=== PATIENT | male | born 1945 | race Caucasian/White ===

== ENCOUNTER 2021-07-30 09:58 | Outpatient (CLI) | payer OTHER, SELFPAY ==
--- NOTE | ~2021-07-30 | US_ITS ---
EXAMINATION: US carotid duplex BI EXAM DATE: 07/30/2021 10:53 INDICATION: I77.9 - Disorder of arteries and arterioles, unspecified . Occluded right ICA. TECHNIQUE: Grayscale, color and pulsed Doppler images of the cervical carotid arteries were obtained . The degree of vessel stenosis is placed in one of the following categories: normal, <50% stenosis, 50-69% stenosis, >=70% stenosis but less than near-occlusion, near-occlusion, or occlusion. Note that percent stenosis relative to normal distal artery lumen diameter is indirectly measured from velocit y measurements as described by Alfredo, et al. Radiology 2003; [id number]:[id number]. Comparison is made to prior examination from 05/04/2018. FINDINGS: RIGHT SIDE: Right common carotid artery peak systolic velocity (PSV in cm/s): 94 Right bulb/internal carotid artery peak systolic velocity (PSV in cm/s): Occluded Right internal carotid artery end diastolic velocity (EDV in cm/s): Occluded Right ICA/CCA peak systolic ratio: Right external carotid artery peak systolic velocity (PSV in cm/s): 90 Right vertebral artery antegrade flow: yes Right carotid bulb, ICA appears to be completely occluded. LEFT SIDE: Left common carotid artery peak systolic velocity (PSV in cm/s): 64 Left bulb/internal carotid artery peak systolic velocity (PSV in cm/s): 71 Left internal carotid artery end diastolic velocity (EDV in cm/s): 18 Left ICA/CCA peak systolic ratio: 1.1 Left external carotid artery peak systolic velocity (PSV in cm/s): 113 Left vertebral artery antegrade flow: yes There is mild carotid bulb plaque. Velocity and Doppler waveforms in the common and internal carotid arteries is normal. IMPRESSION: 1. Occluded right internal carotid artery. 2. Less than 50 percent stenosis in the left internal carotid artery. Reviewed, dictated and finalized at location B.
== END 2021-07-30 09:59 | disposition home or self-care (01) ==
PROVIDERS: PCP Internal Medicine; Visit Provider Nurse Practitioner
DX: I65.21 Occlusion and stenosis of right carotid artery (principal)
CPT/HCPCS: 93880

== ENCOUNTER 2022-12-09 19:20 | Emergency (ER) | payer OTHER, SELFPAY ==
--- NOTE | ~2022-12-09 | XR_ITS ---
EXAM: XR hand LT min 3V DATE: 12/09/2022 20:39 HISTORY: fall, LACERATION ON 5TH DIGIT . COMPARISON: None available. FINDINGS: Normal mineralization. No fracture or dislocation. No lytic or blastic lesion. Chondrocalc inosis. Moderate scattered degenerative changes. No erosion or periosteal change. Soft tissues within normal limits. The fourth and fifth fingers are obscured by overlap in the lateral view. IMPRESSION: No acute osseous finding in the left hand, noting that evaluation of the fingers is limit ed by suboptimal lateral view. Reviewed, dictated and finalized at location K. EMATICS PROFESSOR IMPRESSION: No acute osseous finding in the left hand, noting that evaluation o f the fingers is limited by suboptimal lateral view.
--- NOTE | ~2022-12-09 | CT_ITS ---
EXAMINATION: CT brain wo con DATE: 12/09/2022 20:31 INDICATION: head injury . TECHNIQUE: Computed tomography (CT) of the head was performed without intravenous contrast. The mA wa s adjusted according to patient size. Iterative reconstruction technique was employed. The dose-lengt h product was 681.00 mGy-cm. COMPARISON: CT sinuses 01/27/2008, CT brain 12/10/2004; ultrasound carotid 07/30/2021. FINDINGS: No acute intracranial hemorrhage or extra-axial fluid collection. No hydrocephalus, mass, or herniation. No acute ischemic infarct. Unremarkable dural venous sinus attenuation. No acute osseous abnormality. Left frontal contusion/laceration. Aerated secretions in the left maxillary sinus, small bilateral maxillary retention cysts or polyps, the remaining aerated spaces are clear. Moderate atrophy and chronic white matter change. Atherosclerotic intracranial calcification. Ectatic appearing left carotid and right posterior communicating arteries. Right-sided carotid foramen hypop lastic/congenitally absent. IMPRESSION: No acute intracranial process. Acute sinusitis versus hemorrhage within the left maxillary sinus. Reviewed, dictated and finalized at location K. RAL RESOURCES TECHNICIAN IMPRESSION: No acute intracranial process. Acute sinusitis versus hemorrhage within the lef t maxillary sinus.
[2022-12-09 19:54] VITALS: BP 151/88; PULSE 96; RESP 16; TEMP 37; O2SAT 98
[2022-12-09 22:54] VITALS: BP 144/93; PULSE 85; RESP 18; O2SAT 97
--- NOTE | 2022-12-10 00:29 | ED.FALL ---
HPI - Fall General Chief Complaint: Fall Stated Complaint: tripped and fell onto concrete Time Seen by Provider: 12/09/22 23:48 Source: patient Mode of arrival: ambulatory Limitations: no limitations History of Present Illness HPI Narrative: This is a 77-year-old male who comes in with chief complaint of a fall occurring around 1830 this evening. He was walking on the sidewalk when his shoe got caught on a piece of the sidewalk that was sticking up. He then came down and caught himself with his left hand however he did fall on his face as well. He has left hand laceration and facial laceration. He denies any pain in the left hand or in the head. States there is only tenderness at the site of the forehead laceration. Denies any loss of consciousness. Denies preceding chest pain or shortness of breath. Denies numbness, weakness, headache. Patient does not take any blood thinners. He does take a baby aspirin regularly. Related Data Home Medications Medication Instructions Recorded Confirmed aspirin 81 mg tablet,delayed 81 mg PO DAILY 12/10/19 10/31/22 release (Adult Aspirin Regimen) cholecalciferol (vitamin D3) 25 1,000 unit PO DAILY 12/10/19 10/31/22 mcg (1,000 unit) tablet famotidine 20 mg tablet 20 mg PO BID 12/10/19 10/31/22 Allergies Allergy/AdvReac Type Severity Reaction Status Date / Time No Known Allergies Allergy Verified 12/09/22 19:20 Review of Systems Review of Systems: CONSTITUTIONAL: Denies fever, chills, or sweats. EYES: Denies visual changes, redness, or discharge. ENT: Denies rhinorrhea, congestion, sore throat, or otalgia. CARDIOVASCULAR: Denies chest pain, palpitations, or edema. RESPIRATORY: Denies cough or dyspnea. GASTROINTESTINAL: Denies abdominal pain, nausea, vomiting, or diarrhea. GENITOURINARY: Denies dysuria or hematuria. SKIN: Endorses lacerations. Denies rash or itching. MUSCULOSKELETAL: Denies back pain, joint pain, or myalgia. NEUROLOGIC: Denies headache, numbness, dizziness, or weakness. PSYCHIATRIC: Denies anxiety or depression. [facility] Past Medical History Medical History (Updated 12/10/22 @ 01:52 by Ger Benites PA-C) Screening for colon cancer Screening for prostate cancer Family History Family History Mother Patient's mother is in good health Sibling Patient's sister is in good health Father Cerebrovascular accident Patient's father is Other Hypertension Social History Social History Smoking packs per day: 1 Smoking cigarettes per day: 20.0 Years smoked: 12 Smoking pack-years: 12.00 Smoking status: Former smoker Tobacco type: cigarettes Second hand tobacco smoke exposure: No Smoking end date: 01/17/71 Alcohol intake: never Substance use: never Substance use type: does not use Lack of Transportation: No Lack of Food: Never True Current Housing: I Have Housing Concerned About Future Housing: No Difficulty Paying Gas/Electric Bills: No Difficulty Paying for Meds: No Currently Unemployed: No Education: Trade/Vocational Certificate Difficulty w/ Childcare or Family Care: No Exam Narrative: GENERAL: Well-appearing, well-nourished, and in no acute distress. HEAD: Normocephalic, atraumatic. EYES: PERRLA and EOMI. ENT: Nares clear, no rhinorrhea or epistaxis. Mucous membranes moist. Oropharynx without tonsillar hypertrophy exudate or other lesions. There is no maxillary tenderness or frontal sinus tenderness. There is no hall sign, raccoon eyes. NECK: Supple. No adenopathy or masses. CHEST: No respiratory distress. Clear to auscultation. No wheezes rales or rhonchi HEART: Regular rate and rhythm. No murmur heard. Normal peripheral pulses. ABDOMEN: Soft, nontender, nondistended, normal active bowel sounds. EXTREMITIES: Normal range of motion. No edema. SKIN: Warm, dry, n
== END 2022-12-10 02:31 | disposition home or self-care (01) ==
PROVIDERS: Emergency Provider Emergency Medicine; PCP Internal Medicine
DX: S61.412A Laceration without foreign body of left hand, initial encounter (principal); S01.81XA Laceration without foreign body of other part of head, initial encounter; S01.21XA Laceration without foreign body of nose, initial encounter; W01.0XXA Fall on same level from slipping, tripping and stumbling without subsequent striking against object, initial encounter; Z79.82 Long term (current) use of aspirin; Z87.891 Personal history of nicotine dependence
CPT/HCPCS: 12001; 12013; 70450; 73130; 99284

== ENCOUNTER → 2022-12-11 15:14 | Emergency (ER) | payer OTHER, SELFPAY ==
--- NOTE | 2022-12-11 16:06 | PC.NURSE ---
PT WAS NOT TRIAGED, PT CAME IN, BEGAN TO CHECK PT IN, PT WENT TO WAS ASSISTED TO RR, ASKED ABOUT NARCOTICS, WHEN PT WAS FINISHED, SHE LEFT WITH PT, DECLINED FURTHER TREATMENT. REFUSED TRIAGE, REFUSED TO BEEN SEEN AT URGENT CARE. STATES PMD SENT THEM HERE FOR NARCOTIC PAIN TREATMENT.
== END | disposition left against medical advice (07) ==
PROVIDERS: Emergency Provider Nurse Practitioner; PCP Internal Medicine
DX: Z53.21 Procedure and treatment not carried out due to patient leaving prior to being seen by health care provider (principal)
CPT/HCPCS: 99199; J2250

== ENCOUNTER 2022-12-11 21:48 | Inpatient (IN) | payer OTHER, SELFPAY ==
--- NOTE | ~2022-12-11 | XR_ITS ---
Left Hand Technique: PA, oblique, and lateral views were obtained. Clinical History: Pain Findings: No acute fracture or dislocation is seen. Osseous alignment is anatomic. Joint spaces are p reserved. There is dorsal soft tissue swelling in the hand. Impression: No fracture or dislocation evident. Dorsal soft tissue swelling of the hand. Reviewed, dictated and finalized at location . EMIC SERVICES COORDINATOR Impression: No fracture or dislocation evident. Dorsal soft tissue swelling of the hand.
--- NOTE | ~2022-12-11 | XR_ITS ---
Portable chest x-ray Comparison: 12/11/2022 Clinical History: Line placement Findings: Right subclavian line is in satisfactory position. There is left basilar atelectatic issa e, or possibly pneumonia. No pneumothorax. Cardiomediastinal silhouette is stable. Bones and soft ti ssues are unremarkable. Impression: Right subclavian line in satisfactory position. Left basilar atelectasis versus pneumonia. Correlate clinically. No pneumothorax. Reviewed, dictated and finalized at location . TIONS MGR Impression: Right subclavian line in satisfactory position. Left basilar atelectasis versus pneumonia. Correlate clinically. No pneumothorax.
--- NOTE | ~2022-12-11 | XR_ITS ---
Portable chest x-ray Comparison: 03/12/2014 Clinical History: Hypotension Findings: There is mild haziness the left lung base. Probable minimal central congestive change. Ca rdiomediastinal silhouette is stable. Bones and soft tissues are unremarkable. Impression: Probable minimal central congestive changes with minimal left basilar atelectasis. Correlate for any possibility of left basilar pneumonia. Reviewed, dictated and finalized at [facility]. TECHNICIAN Impression: Probable minimal central congestive changes with minimal left basilar atelectas is. Correlate for any possibility of left basilar pneumonia.
[2022-12-11 21:55] VITALS: BP 137/111; PULSE 87; RESP 14; TEMP 36.7; O2SAT 92
[2022-12-11 21:55] LABS: Glucose Point of Care 73 mg/dl (65-105)
[2022-12-11 22:26] LABS: Mean Corpuscular HGB Conc 32.5 g/dl (32-36); Mean Corpuscular Hemoglobin 31.9 pg (26-34); Mean Corpuscular Volume 98.3 fl (80-100); Mean Platelet Volume 10.9 fl (7.4-10.4); Platelet Count Result 180 k/mm3 (150-375); Red Blood Count 4.07 M/mm3 (4.6-6.20); Red Cell Distribution Width 14.4 % (11.5-14.5); White Blood Count 7.3 K/mm3 (4.5-10.0)
[2022-12-11] MEDS: SODIUM CHLORIDE 0.9% IV 1,000 ML 999 ML IV CONT ×2 (22:44→23:26)
--- NOTE | 2022-12-11 22:44 | PC.NURSE ---
Pt brought in by with main complaint of nausea, vomiting, and non-stop diarrhea that started early this morning. Pt c/o feeling very weak and intermittent abdominal pain. Pt was seen Friday after he tripped and fell. He c/o ongoing shoulder, elbow, neck, back, and hand pain related to the fall. He has salonpas patches on bilateral shoulders and states they have helped with his pain quite a bit. His left hand is very swollen and discolored. Radial pulse difficult to palpate. Sensation decreased. Cap refill >3 seconds. When patient arrived his room air oxygen saturation was in the 80s. Pt was placed on 4L nasal cannula. Pulse ox is difficult to obtain. This RN attempted to obtain pulse ox on each finger and the forehead but cannot gain accurate result. Right hand placed in warm blanket to promote circulation. Dr. Hook notified of 78/55 blood pressure and she gave verbal order to begin IV fluids. Normal saline bolus started at this time.
[2022-12-11 22:46] LABS: Alanine Aminotransferase 50 U/L (6-50); Albumin Level 3.9 g/dL (3.5-5.1); Alkaline Phosphatase 55 U/L (38-126); Anion Gap 17 mmol/L (8-16); Aspartate Amino Transferase 82 U/L (17-59); Blood Urea Nitrogen 49 mg/dL (9-20); Calcium 8.5 mg/dL (8.4-10.2); Carbon Dioxide 17 mmol/L (22-30); Chloride 105 mmol/L (98-107); Estimated Glomerular Filt Rate 20; Glucose 63 mg/dL (65-110); Lipase 256 U/L (23-300); Potassium 3.6 mmol/L (3.4-5.0); Sodium 139 mmol/L (137-145)
[2022-12-11 23:30] LABS: Band Neutrophils Percent 32 % (0-6); Eosinophils Absolute Manual 0.07 K/mm3 (0.02-0.5); Eosinophils Percent Manual 1 % (0-4); Lymphocytes Absolute Manual 0.21 K/mm3 (1.1-4.5); Metamyelocytes Percent 30 %; Monocytes Absolute Manual 0.29 K/mm3 (0.1-0.90); Monocytes Percent Manual 4 % (3-9); Myelocytes Percent 19 %; Neutrophils Absolute Manual 3.13 K/mm3 (1.3-6.7); Neutrophils Percent Manual 11 % (46-73); Total Cells Counted 100
[2022-12-11 23:31] LABS: Anisocytosis 3+ (NORMAL); Giant Platelets Present; Large Platelets Present; Macrocytosis 3+ (NORMAL); Microcytosis 1+ (NORMAL); Ovalocytes 1+ (NORMAL); Platelet Estimate Adequate (Adequate); Poikilocytosis 3+ (NORMAL)
--- NOTE | 2022-12-11 23:31 | ED.GENADULT ---
HPI - General Adult General Chief complaint: Nausea/Vomiting/Diarrhea Stated complaint: n/v/d Time Seen by Provider: 12/11/22 22:45 History of Present Illness HPI narrative: this is a 77-year-old male presenting ED the chief complaint of diarrhea. Patient was seen in our ER recently after he tripped over a curve and scraped his hand as well as sustained a laceration to his face. That time he had no complaints and his lacerations repaired and discharged home. However he went home has had diarrhea throughout most of the day. additionally says he has not eaten at all today. He now feels weak. Additionally he has swelling and blistering of his left hand. Patient's brought him into emergency department for evaluation. Related Data Home Medications Medication Instructions Recorded Confirmed aspirin 81 mg tablet,delayed 81 mg PO DAILY 12/10/19 10/31/22 release (Adult Aspirin Regimen) cholecalciferol (vitamin D3) 25 1,000 unit PO DAILY 12/10/19 10/31/22 mcg (1,000 unit) tablet famotidine 20 mg tablet 20 mg PO BID 12/10/19 10/31/22 Allergies Allergy/AdvReac Type Severity Reaction Status Date / Time No Known Allergies Allergy Verified 12/09/22 19:20 [facility] Past Medical History Medical History Acquired hypothyroidism HTN (hypertension) Poor balance Screening for colon cancer Screening for prostate cancer Family History Family History Mother Patient's mother is in good health Sibling Patient's sister is in good health Father Cerebrovascular accident Patient's father is Other Hypertension Social History Social History Smoking packs per day: 1 Smoking cigarettes per day: 20.0 Years smoked: 12 Smoking pack-years: 12.00 Smoking status: Former smoker Tobacco type: cigarettes Second hand tobacco smoke exposure: No Smoking end date: 01/17/71 Alcohol intake: never Substance use: never Substance use type: does not use Lack of Transportation: No Lack of Food: Never True Current Housing: I Have Housing Concerned About Future Housing: No Difficulty Paying Gas/Electric Bills: No Difficulty Paying for Meds: No Currently Unemployed: No Education: Trade/Vocational Certificate Difficulty w/ Childcare or Family Care: No Exam Narrative: APPEARANCE: No apparent distress. Head: Patient has sutured laceration over his nose and left eyebrow. no surrounding erythema or fluctuance. EYES: EOMI, NOSE: Atraumatic NECK: Trachea midline RESPIRATORY: No increased rate of breathing , clear to auscultation bilaterally CARDIOVASCULAR: RRR, hypotensive ABDOMINAL: Non-distended, soft no guarding or rebound MUSCULOSKELETAl: focal exam of the left hand shows significant swelling and bruising. There are clear blisters with serosanguineous fluid in them extending to the wrist. Cap refills less than 2 seconds. Sensation light touch is intact. NEURO: Alert. Moving 4/4 extremities SKIN:: Warm, dry. Normal color PSYCHIATRIC: Normal affect Course Vital Signs Vital signs: Vital Signs Temperature 98.0 F 12/11/22 21:55 Pulse Rate 87 12/11/22 21:55 Respiratory Rate 14 12/11/22 21:55 Blood Pressure 137/111 H 12/11/22 21:55 Pulse Oximetry 92 12/11/22 21:55 Oxygen Delivery Nasal Cannula 12/11/22 21:55 Oxygen Flow Rate 2.0 12/11/22 21:55 Temperature 98.0 F 12/11/22 21:55 Pulse Rate 87 12/11/22 21:55 Respiratory Rate 14 12/11/22 21:55 Blood Pressure 137/111 H 12/11/22 21:55 Pulse Oximetry 92 12/11/22 21:55 Oxygen Delivery Nasal Cannula 12/11/22 21:55 Oxygen Flow Rate 2.0 12/11/22 21:55 Medical Decision Making [facility] Narrative Medical decision making narrative: -Presentation: 77-year-old male presenting with 1 day of diarrhea. Patient states he is no
[2022-12-11 23:32] LABS: Acanthocytes 2+ (NORMAL); Burr Cells 2+ (NORMAL); Crenated RBC 3+ (NORMAL); Schistocytes 1+ (NORMAL)
[2022-12-11 23:40] VITALS: BP 91/62; PULSE 94; RESP 20
[2022-12-11] MEDS: HYDROcodone/acetaminophen (*CRX) 5-325 MG TABLET 1 TAB PO (23:40)
[2022-12-12] VITALS (86 sets, daily range): BP systolic 73–161; BP diastolic 35–140; PULSE 75–100; RESP 15–29; TEMP 36.4–37; O2SAT 69–100; BMI 27.4
[2022-12-12 00:07] LABS: Influenza A QL RT-PCR Negative (Negative); Influenza B QL RT-PCR Negative (Negative); RSV RNA, RT-PCR Negative (Negative); SARS-CoV-2 RNA PCR Negative
[2022-12-12] MEDS: SODIUM CHLORIDE 0.9% IV 1,000 ML 999 ML IV CONT (00:26)
[2022-12-12] MEDS: PIPERACILLN/TAZ 3.375GM/NS50ML 3.375 GM/50 ML BAG IVPB (00:26)
--- NOTE | 2022-12-12 00:29 | PC.NURSE ---
Supplemental oxygen discontinued per Dr. Tapia at this time.
--- NOTE | 2022-12-12 00:32 | PC.NURSE ---
Continued attempts to obtain pulse ox reading unsuccessful. Used every finger on pt's unaffected hand as well as forehead sensor and his toes. Unable to obtain pulse ox. Dr. Tapia is aware.
--- NOTE | 2022-12-12 00:51 | ECG_ITS ---
Measurements Intervals [place] Rate: 90 P: 47 CO: 175 QRS: -36 QRSD: 142 T: 15 QT: 395 QTc: 484 Interpretive Statements SINUS RHYTHM ATRIAL PREMATURE COMPLEXES LEFT AXIS DEVIATION RIGHT BUNDLE BRANCH BLOCK BASELINE ARTIFACT- II, III, AVF, V1-V6 ABNORMAL ECG NO PREVIOUS ECG AVAILABLE FOR COMPARISON Electronically Signed On 12-12-2022 8:18:53 [employer]HER by Scar Stahl D.O.
[2022-12-12 00:52] LABS: Alveolar/Arterial O2 Gradient 58.5 mmHg; Base Excess ABG -9.8 mEq/l (+/-2.0); Fractional Inspired Oxygen 21 %; Oxygen Content ABG 16.3 %vol (16.0-22.0); PCO2 ABG 29.9 mmHg (35.0-45.0); PO2 ABG 55.4 mmHg (80.0-100.0); PO2 FiO2 Ratio Arterial Blood 2.64 %; Total Hemoglobin 13.5 g/dL (12.0-18.0); pH ABG 7.318 (7.350-7.450)
[2022-12-12 00:55] LABS: Oxygen Saturation ABG 86.9 % (95.0-100.0)
[2022-12-12 00:56] LABS: Modified Allen's Test Pass; Oxyhemoglobin 85.9 % THb (90.0-100.0); Site Drawn RIGHT RADIAL
[2022-12-12 00:57] LABS: Device ROOM AIR
[2022-12-12] MEDS: DEXTROSE 50% 25 GM/50 ML SYRINGE IV PUSH (01:35)
[2022-12-12] MEDS: NOREPINEPHRINE 8 MG/D5W 250 ML 8 MG/250 ML BAG 9.38 MG IV CONT (02:08)
[2022-12-12] MEDS: CLINDAMYCIN 600 MG/D5W 50 ML 600 MG/50 ML PIGGYBACK 100 MG IVPB (02:22)
--- NOTE | 2022-12-12 02:22 | PC.NURSE ---
Clindamycin would not scan but was verified by two RN's at bedside
[2022-12-12 02:26] LABS: Creatine Kinase 1529 U/L (55-170); Lactic Acid Reflex 3.8 mmol/L (0.7-2.0)
--- NOTE | 2022-12-12 03:02 | WPDANESEPP ---
Anes - Eval Pre Procedure Procedure: I and D of the left hand Date/Time: 12/12/22 03:02 Surgeon: Jaret Preop Diagnosis: Necrotizing fasciitis left hand Pre Op Diagnosis: Dehydration Patient Data Age: 77 Gender: M Height: Weight: 74.9 kg Last Vital Signs Temp 98.0 F 12/11/22 21:55 Pulse 95 12/12/22 02:42 Resp 20 12/12/22 02:16 BP 73/60 L 12/12/22 02:42 Pulse Ox 98 12/12/22 02:16 O2 Del Method Nasal Cannula 12/11/22 21:55 O2 Flow Rate 2.0 12/11/22 21:55 Allergies Allergy/AdvReac Type Severity Reaction Status Date / Time No Known Allergies Allergy Verified 12/09/22 19:20 Home Medications Medication Instructions Recorded Confirmed Type aspirin 81 mg tablet,delayed 81 mg PO DAILY 12/10/19 10/31/22 History release (Adult Aspirin Regimen) cholecalciferol (vitamin D3) 25 1,000 unit PO DAILY 12/10/19 10/31/22 History mcg (1,000 unit) tablet famotidine 20 mg tablet 20 mg PO BID 12/10/19 10/31/22 History levothyroxine 75 mcg tablet See Rx Instructions .Route 07/26/22 10/31/22 Rx .COMPLEX #90 tabs atorvastatin 80 mg tablet 80 mg PO DAILY #90 tabs 08/02/22 10/31/22 Rx pantoprazole 40 mg tablet,delayed See Rx Instructions .Route 08/13/22 10/31/22 Rx release .COMPLEX #90 tabs lisinopril 30 mg tablet See Rx Instructions .Route 10/18/22 10/31/22 Rx .COMPLEX #90 tabs sertraline 25 mg tablet See Rx Instructions .Route 10/18/22 10/31/22 Rx .COMPLEX #90 tabs cephalexin 500 mg capsule 500 mg PO Q8H 7 days #21 caps 12/11/22 Rx Laboratory Tests 12/11/22 12/11/22 12/11/22 21:52 22:20 22:20 WBC 7.3 K/mm3 K/mm3 (4.5-10.0) RBC 4.07 M/mm3 L M/mm3 (4.6-6.20) Hgb 13.0 g/dL L g/dL (14.0-18.0) Hct 40.0 % L % (42.0-52.0) MCV 98.3 fl fl (80-100) MCH 31.9 pg pg (26-34) MCHC 32.5 g/dl g/dl (32-36) RDW 14.4 % % (11.5-14.5) Plt Count 180 k/mm3 k/mm3 (150-375) MPV 10.9 fl H fl (7.4-10.4) Immature Gran % (Auto) Not Reportable Neut % (Auto) Not Reportable Lymph % (Auto) Not Reportable [place] % (Auto) Not Reportable Eos % (Auto) Not Reportable Baso % (Auto) Not Reportable Lymph # (Auto) Not Reportable [place] # (Auto) Not Reportable Eos # (Auto) Not Reportable Baso # (Auto) Not Reportable Abs Immat Gran (auto) Not Reportable Absolute Neuts (auto) Not Reportable Absolute Nucleated RBC Not Reportable Total Counted 100 Neutrophils % (Manual) 11 % L % (46-73) Band Neutrophils % 32 % H % (0-6) Lymphocytes % (Manual) 3.0 % L % (18-44) Monocytes % (Manual) 4 % % (3-9) Eosinophils % (Manual) 1 % % (0-4) Metamyelocytes % 30 % % Myelocytes % 19 % % Nucleated RBC % Not Reportable Abs Neuts (Manual) 3.13 K/mm3 K/mm3 (1.3-6.7) Abs Lymphs (Manual) 0.21 K/mm3 L K/mm3 (1.1-4.5) Abs Monocytes (Manual) 0.29 K/mm3 K/mm3 (0.1-0.90) Absolute Eos (Manual) 0.07 K/mm3 K/mm3 (0.02-0.5) Platelet Estimate Adequate (Adequate) Large Platelets Present Giant Platelets Present Poikilocytosis 3+ (NORMAL) Anisocytosis 3+ (NORMAL) Microcytosis 1+ (NORMAL) Macrocytosis 3+ (NORMAL) Ovalocytes 1+ (NORMAL) Summit Cells 2+ (NORMAL) Crenated Cell 3+ (NORMAL) Acanthocytes (Spur) 2+ (NORMAL) Schistocytes 1+ (NORMAL) Puncture Site ABG pH ABG pCO2 ABG pO2 ABG PO2/FiO2 Ratio ABG HCO3 ABG O2 Saturation ABG O2 Content ABG Base Excess A-a Gradient
[2022-12-12 03:11] LABS: Glucose Point of Care 91 mg/dl (65-105)
[2022-12-12] MEDS: NOREPINEPHRINE 8 MG/D5W 250 ML 8 MG/250 ML BAG 30 MG IV CONT (03:30)
--- NOTE | 2022-12-12 03:51 | WPDCN ---
Assessment and Plan Assessment and plan (1) H/O necrotising fasciitis: Code(s): Z87.39 - Personal history of other diseases of the musculoskeletal system and connective tissue Status: Acute Plan The patient will be taken to the operating room acutely for incision and drainage of abscess of the left upper extremity HPI Data of Consult Date/Time: 12/12/22 03:51 Primary Care Provider: Magno Marley MD Consult Narrative Reason for consult: Necrotising fasciitis or left hand. Narrative: Brian Noriega is a 77 year old male who came to the ER because symptoms of nausea and the left hand turning purple with large blisters. The hand is very edematous and he says he has no feeling in his fingertips and he is unable to flex and extend the fingers due to the scale of the edema. The patient was in the [place] emergency room on 12/09/2022 for evaluation of head trauma. He had fall on a parking lot at [facility] in [place] where his was being cared for. He scraped his right palm and struck his forehead. The family traveled with him to the [place] [facility] following that incident. He had a lot of bleeding from his forehead and the family waited several hours in the emergency room for treatment of that. A CT scan of his head revealed no fractures or intracranial bleeding. One a small laceration on his mid brow was sutured. Also noted was a laceration on his left palm near the base of the 5th finger. This also was sutured. He has had several doses of Cephalexin 500 mg. The patient developed swelling stiffness numbness bruising and blistering over the palmar aspect of his palm in the next day. He had some symptoms of nausea or. he is brought to the emergency room tonight because of the systemic symptoms and the marked swelling and discoloration of his left hand. During this admission the has been hypotensive at times and has been started on Levophed. The emergency room position had considered admitting this patient to the ICU. He tried to refer this patient to [facility] and were instructed that the condition requires that a local surgeon open this and drain pus. I am told they would agree to accept him once he is thus stabilized. I was contacted around 0230 with this information and agreed to accept this patient's care for surgery [facility].. Review of Systems Review of Systems: All systems reviewed & are unremarkable except as noted in HPI and below ENT: Reports system reviewed and no additional complaints, except as documented Comments: Abrasion with stitches between eyebrows. Cardiovascular: Cardiovascular: Reports no additional cardiovascular complaints Respiratory: Respiratory: Reports no additional respiratory complaints Gastrointestinal: Gastrointestinal: Reports no additional gastrointestinal complaints Genitourinary: Genitourinary: Reports no additional male genitourinary complaints Psychiatric: Psychiatric: Reports no additional psychiatric complaints Endocrine: Endocrine: Reports no additional endocrine complaints Hematologic/Lymphatic: Hematologic/Lymphatic: Reports no additional hematologic/lymphatic complaints PMFSH Past Medical History Medical History Acquired hypothyroidism Acute hypotension Gastroesophageal reflux disease HTN (hypertension) Hypovolemic shock Mixed hyperlipidemia Neuropathy of both feet Poor balance Screening for colon cancer Screening for prostate cancer Family History Family History Mother Patient's mother is in good health Sibling Patient's sister is in good health Father Cerebrovascular accident Patient's father is Other Hypertension Social History Social History Smoking packs per day: 1 Smoking cigarettes per day: 20.0 Years smoked: 12
[2022-12-12 05:14] LABS: Reflex Lactic Acid Yes or No Add Lactic
--- NOTE | 2022-12-12 05:19 | WPDANESACPN ---
Arterial Cath Proc Note Consent: I have discussed with the patient/family/POA, the non-emergent placement of an arterial catheter, including its clinical necessity/indication and associated potential risks and complications. The patient/family/POA and/or understand(s) and acknowledge(s) the need to proceed with the arterial catheter insertion as an important element of the patient's clinical management. Given emergent patient conditions, temporal constraints may have precluded informed consent. Time-Out: A pre-procedural Time-Out was completed immediately before starting the procedure and confirmed: Patient Identification, Site, Procedure, Patient Position and the Availability of Requisite Equipment. Procedure Note Problems: hypotension Patient position: supine Insertion site: right radial Method of insertion: ultrasound-guided Bottle Blower prep: sterile gloves, mask and hat Site prep: chlorahexadine Skin anesthesia: general anesthesia Gauge: 20 gauge Length (cm): 4.4 cm Closure/Dressing: antimicrobial disc and tegaderm Complications: None immediately noted/suspected.
--- NOTE | 2022-12-12 06:00 | ADMGEN ---
This patient, Brian Noriega, was admitted to Intensive Care Unit-4. Patient/family oriented to hospital policies and general routines including ID bracelet, bed and alarms, visiting hours, pain management, procedures, bathroom and other care routines, personal items, smoking policy, room service/diet, and visiting hours. Information on how to activate the Rapid Response Team has been discussed. Patient/Family are encouraged to report perceived risks to care and to ask questions if they do not understand what they are told or what they should do.
--- NOTE | 2022-12-12 06:26 | W.PM.PROC2 ---
Procedure Note - Detailed Date of Procedure 12/12/22 Pre-op Diagnosis Necrotizing fasciitis of the left upper extremity Post-op Diagnosis Same Procedure Performed Incision and drainage of deep fascia of the left hand and wrist Surgeon Shailesh Raygoza MD Graphics Software Engineer Kelsey Anesthesia General Indications Necrotizing fasciitis of left palm and wrist Findings Necrotizing fasciitis of the palmar bursae Description of Procedure Patient's swollen hand was evaluated in the emergency room. He was scheduled for a stat incision and drainage of this. The condition of the hand and our plans for surgery were explained to the patient and his and daughter.. When staff arrived he was taken to the operating room, placed supine on the operating table and administered general anesthesia. The left upper extremity was prepped and draped usual fashion to the elbow. The the hand was carefully evaluated for surgical access sites. Original wound seemed to have been near the base of the a 5th finger on the palm where there were stitches. Bruising and discoloration and swelling were especially prominent in the thenar region and proximal palm suggesting the possibility of a horseshoe bursal abscess. The hand was elevated and the tourniquet inflated to 250 mmHg. The surgery began by debriding away the blistered skin. This peeled all across the thenar mass and proximal palm. The index middle and ring fingers seem to be less involved than the 5th and the thumb. The 1st incision was in the midline palmar area over the carpal flexor retinaculum. The subcutaneous tissue was spongy with purulence. The retinaculum was incised carefully with a 15 blade. We found hyperemia and thin alvarez pus. The volar fascia was incised proximal to the wrist crease through a Nara type incision. The palmaris longus tendon was identified and left attached to its insertion on the ulnar side of our incision.. The skin in that area, while blistered, proved to be in much better condition and there was little purulence proximal to the wrist flexion crease. The 2nd incision was made through the laceration at the 5th metacarpal head region and extended into the carpal tunnel incision in zigzag fashion. Significant purulence was found along the flexor tendon sheath in that area. Neurovascular structures were identified. Skin and subcu tissue in this area was boggy with purulence. At this point this entire open area was irrigated with saline. The next incision roughly paralleled the thenar crease over the thenar mass. We dissected to the thenar muscles and these appeared to be free of pus or necrosis. We were able to explore the ulnar bursa. This area was copiously irrigated. There did not appear to be involvement of the flexor bursa of the ring middle and index fingers. Neurovascular structures in the middle of the palm were not skeletonized. The area to the index bursa revealed little involvement. After irrigating this with a L of saline. We turned the hand over and made 4 incisions. Two these were in the 2nd and 3rd web spaces allowing expiration to the into the muscle groups which were all found to be edematous but otherwise functional.. The 3rd incision was over the dorsal 1st web to confirm that there was no additional pus in that region. Fourth incision was a transverse incision over the extensor retinaculum for the same purpose. No purulence was noted there. There was a lot watery edema noted in these incisions. These were all connected through the subcutaneous tissue and copiously irrigated. The cultures were taken from the area the original puncture wound. The tourniquet was released. Dressings placed were Silver alginate rope placed to connect all the wounds. There were 3 pieces placed. Additional dressings were 3 x 8 Xeroform sheets and bulky gauze. There was no significant bleeding at the time of dressing. Patient tolerated procedure well and will be transf
[2022-12-12] MEDS: VASOPRESSIN INJ 100 UNITS in DEXTROSE 5% 95 ML IV CONT (06:55)
[2022-12-12] MEDS: LACTATED RINGERS 1,000 ML 999 ML IV CONT ×2 (06:56→08:42)
--- NOTE | 2022-12-12 07:53 | WPDCNINT ---
Assessment and Plan Assessment and plan (1) Septic shock: Code(s): A41.9 - Sepsis, unspecified organism; R65.21 - Severe sepsis with septic shock Status: Acute (2) Necrotizing fasciitis: Code(s): M72.6 - Necrotizing fasciitis Status: Acute (3) MACIEJ (acute kidney injury): Code(s): N17.9 - Acute kidney failure, unspecified Status: Acute Plan Neuro: - Analgesia: will use PRN Dilaudid for pain. CV: - Septic shock: source is necrotizing fasciitis - see below. Trend lactate, continue fluid resuscitation. Continue Levophed and vasopressin for hemodynamic support. Consider stress dose steroids, though that may impact wound healing. - HLD: hold home statin. - Hx of HTN: hold home meds due to shock. Pulm: - No acute issues. Pt is oxygenating well on simple face mask. GI: - Diarrhea: suspect side effect of cephalexin. Place FMS to avoid moisture-related dermatitis and skin breakdown. Renal: - MACIEJ: likely ATN from hypoperfusion. Monitor UOP and SCr. Check FENa. No indication for GRANT WRITER at this time. Consult Nephrology. - Rhabdomyolysis: due to trauma, continue fluids and trend CK. ID: - Necrotizing fasciitis of LUE: I&D in OR early 12/12 for source control. Heme/Onc: - No acute issues. Endocrine: - No acute issues. Keep glucose 100-180. MSK/Skin: - Local wound care to LUE. Management as per hand surgery. DVT ppx: heparin SC GI ppx: Pepcid Ticketing Agent Consult Note Consult date: 12/12/22 Reason for consult: Septic shock HPI: Brian Noriega is a 77 year old male with a history of HTN who presented to the ED with L hand swelling and diarrhea. He originally presented to the ED on 12/09 evening after a fall in the parking lot and [facility] where he was visiting his . He landed on his L hand and L side of his face. In the ED he had laceration repair above the L eyebrow with sutures, the L hand with sutures, and the bridge of the nose with steristrips. All sites were noted to be copiously irrigated prior to closure. Pt was discharged home with cephalexin. He returned to the ED with diarrhea occurring all day and blistering of the L hand. Labs showed MACIEJ, rhabdomyolysis, and lactic acidosis. He was hypotensive and started on Levophed; pt was felt to have necrotizing fasciitis and was taken urgently to the OR for I&D of the L hand and wrist. He was then admitted to the ICU for further management. He is currently on high dose Levophed; vasopressin added this AM. Pt c/o mild pain in his neck and L shoulder, minimal pain in L hand. Review of Systems Review of Systems: As per HPI. [facility] Past Medical History Medical History Acquired hypothyroidism Acute hypotension Gastroesophageal reflux disease HTN (hypertension) Hypovolemic shock Mixed hyperlipidemia Neuropathy of both feet Poor balance Screening for colon cancer Screening for prostate cancer Family History Family History Mother Patient's mother is in good health Sibling Patient's sister is in good health Father Cerebrovascular accident Patient's father is Other Hypertension Social History Social History Smoking packs per day: 1 Smoking cigarettes per day: 20.0 Years smoked: 12 Smoking pack-years: 12.00 Smoking status: Never smoker Tobacco type: cigarettes Second hand tobacco smoke exposure: No Smoking end date: 01/17/71 Alcohol intake: current Drinks per week: 2 Substance use: never Substance use type: does not use Lack of Transportation: No Lack of Food: Never True Current Housing: I Do Not Have Housing Concerned About Future Housing: No Difficulty Paying Gas/Electric Bills: No Difficulty Paying for Meds: No Currently Unemployed: No Education: High School Diploma/GED Difficulty w/ Child
[2022-12-12] MEDS: NOREPINEPHRINE 8 MG/D5W 250 ML 8 MG/250 ML BAG 56.25 MG IV CONT (08:03)
[2022-12-12] MEDS: LACTATED RINGERS 1,000 ML 125 ML IV CONT ×2 (08:04→08:41)
[2022-12-12] MEDS: FAMOTIDINE 20 MG/2 ML VIAL 10 MG IV PUSH ×2 (08:42→20:34)
[2022-12-12] MEDS: NOREPINEPHRINE 8 MG/D5W 250 ML 8 MG/250 ML BAG 46.88 MG IV CONT (08:46)
[2022-12-12 08:48] LABS: Hematocrit 38.8 % (42.0-52.0); Hemoglobin 12.8 g/dL (14.0-18.0); Mean Platelet Volume 10.6 fl (7.4-10.4); Platelet Count Result 188 k/mm3 (150-375); Red Cell Distribution Width 14.6 % (11.5-14.5); White Blood Count 11.8 K/mm3 (4.5-10.0)
[2022-12-12 08:57] LABS: Lactic Acid 2.8 mmol/L (0.7-2.0)
[2022-12-12 09:06] LABS: Alanine Aminotransferase 42 U/L (6-50); Albumin Level 2.8 g/dL (3.5-5.1); Alkaline Phosphatase 40 U/L (38-126); Anion Gap 10 mmol/L (8-16); Aspartate Amino Transferase 91 U/L (17-59); Bilirubin,Total 0.8 mg/dL (0.2-1.3); Blood Urea Nitrogen 50 mg/dL (9-20); Calcium 7.2 mg/dL (8.4-10.2); Carbon Dioxide 15 mmol/L (22-30); Chloride 108 mmol/L (98-107); Creatine Kinase 2642 U/L (55-170); Estimated CRCL calculation 17 ml/min; Estimated Glomerular Filt Rate 19; Glucose 76 mg/dL (65-110); Potassium 4.7 mmol/L (3.4-5.0); Sodium 133 mmol/L (137-145)
[2022-12-12 09:10] LABS: Appearance Urine Turbid (Clear); Bacteria Urine None Seen /hpf; Bilirubin Urine 1+ (Negative); Blood Urine 3+ (Negative); Color Urine Dark Yellow (Yellow); Glucose Urine UA Negative (Negative); Granular Casts Urine Present /lpf; Ketones Urine Negative (Negative); Leukocyte Esterase Ur 2+ LEU/UL (Negative); Nitrate Urine Negative (Negative); Non Pathogenic Casts >20; Protein Urine 2+ mg/dL (Negative); RBC Urine >100 /hpf (0-2); Specific Grav Ur 1.026 (1.001-1.035); Squamous Epithelial Cell Urine Many /hpf (Few); Urobilinogen Urine 0.2 mg/dL (<2.0); WBC Urine 21-50 /hpf; Waxy Casts Urine Present /lpf
[2022-12-12 09:12] LABS: Troponin I 0.132 ng/mL (0.000-0.034)
[2022-12-12 09:23] LABS: Add Urine Microscopic? YES
[2022-12-12 09:29] LABS: Band Neutrophils Percent 42 % (0-6); Eosinophils Absolute Manual 0.11 K/mm3 (0.02-0.5); Eosinophils Percent Manual 1 % (0-4); Lymphocytes Absolute Manual 0.47 K/mm3 (1.1-4.5); Metamyelocytes Percent 6 %; Monocytes Absolute Manual 1.65 K/mm3 (0.1-0.90); Monocytes Percent Manual 14 % (3-9); Neutrophils Absolute Manual 8.85 K/mm3 (1.3-6.7); Neutrophils Percent Manual 33 % (46-73); Platelet Estimate Adequate (Adequate); Total Cells Counted 100
[2022-12-12 09:30] LABS: Burr Cells 1+ (NORMAL); Poikilocytosis 1+ (NORMAL); Schistocytes None Seen (NORMAL)
[2022-12-12 10:41] LABS: Creatinine Urine 173.7 mg/dL; Sodium Urine Random 42 meq/L
--- NOTE | 2022-12-12 11:41 | PM.IMPN ---
Progress Note: A&P Assessment and Plan (1) Septic shock: Code(s): A41.9 - Sepsis, unspecified organism; R65.21 - Severe sepsis with septic shock Status: Acute Assessment and Plan: Improving (2) Necrotizing fasciitis: Code(s): M72.6 - Necrotizing fasciitis Status: Acute Assessment and Plan: Status post surgical debridement. Continue IV antibiotics. Continue supportive care in the ICU. (3) MACIEJ (acute kidney injury): Code(s): N17.9 - Acute kidney failure, unspecified Status: Acute Assessment and Plan: Monitor kidney function electrolytes. Subjective Date/time seen: 12/12/22 11:41 No new complaints Exam Narrative: Gen: AAOx4, NAD, on simple face mask Skin: sutures noted above L eyebrow, steristrips on bridge of nose Neuro: follows all commands and moves all extremities equally CV: RRR Pul: CTAB Abd:soft, nontender, normoactive bowel sounds Ext: L hand and wrist with dressing- intact sensation and motor function to L fingers; delayed capillary refill (>3 seconds) Objective Data Vital Signs Vital Signs: Vital Signs - 24 hr 12/11/22 21:55 12/12/22 01:20 12/11/22 23:40 Temperature 98.0 F Pulse Rate 87 97 94 Respiratory Rate 14 16 20 Blood Pressure 137/111 H 76/42 L 91/62 L Pulse Oximetry 92 Oxygen Delivery Nasal Cannula Oxygen Flow Rate 2.0 12/12/22 00:00 12/12/22 00:20 12/12/22 00:34 Temperature Pulse Rate 96 97 96 Respiratory Rate 22 H 20 22 H Blood Pressure 90/60 L 90/59 L 88/53 L Pulse Oximetry Oxygen Delivery Oxygen Flow Rate 12/12/22 00:45 12/12/22 02:03 12/12/22 02:08 Temperature Pulse Rate 95 99 98 Respiratory Rate 20 20 Blood Pressure 84/47 L 97/58 L 79/53 L Pulse Oximetry Oxygen Delivery Oxygen Flow Rate 12/12/22 02:16 12/12/22 02:17 12/12/22 02:41 Temperature Pulse Rate 97 95 Respiratory Rate 20 Blood Pressure 77/51 L 77/51 L 77/48 L Pulse Oximetry 98 Oxygen Delivery Oxygen Flow Rate 12/12/22 02:42 12/12/22 03:03 12/12/22 03:04 Temperature Pulse Rate 95 97 97 Respiratory Rate 22 H Blood Pressure 73/60 L 88/49 L 88/49 L Pulse Oximetry 95 Oxygen Delivery Oxygen Flow Rate 12/12/22 03:22 12/12/22 03:30 12/12/22 03:48 Temperature Pulse Rate 97 96 99 Respiratory Rate Blood Pressure 80/65 L 81/52 L 86/42 L Pulse Oximetry Oxygen Delivery Oxygen Flow Rate 12/12/22 03:16 12/12/22 04:05 12/12/22 06:47 Temperature Pulse Rate 98 100 100 Respiratory Rate 20 Blood Pressure 91/62 L 140/71 Pulse Oximetry 96 Oxygen Delivery Oxygen Flow Rate 12/12/22 06:47 12/12/22 06:55 12/12/22 06:00 Temperature 97.8 F Pulse Rate 100 100 100 Respiratory Rate 20 Blood Pressure 77/44 L 83/46 L 85/42 L Pulse Oximetry 96 Oxygen Delivery Oxygen Flow Rate 12/12/22 06:15 12/12/22 06:20 12/12/22 06:25 Temperature Pulse Rate 98 100 100 Respiratory Rate Blood Pressure 75/46 L 81/47 L 81/46 L Pulse Oximetry Oxygen Delivery Oxygen Flow Rate 12/12/22 06:30 12/12/22 06:30 12/12/22 07:07 Temperature Pulse Rate 100 100 100 Respiratory Rate 21 H Blood Pressure 80/45 L 85/50 L 75/46 L Pulse Oximetry 97 Oxygen Delivery Oxygen Flow Rate 12/12/22 07:11 12/12/22 07:59 12/12/22 08:03 Temperature Pulse Rate 98 95 92 Respiratory Rate 22 H Blood Pressure 113/60 117/58 L 122/60 Pulse Oximetry 100 Oxygen Delivery Oxygen Flow Rate 12/12/22 08:03 12/12/22 08:46 12/12/22 08:46 Temperature Pulse Rate 92 94 94 Respiratory Rate Blood Pressure 122/60 128/65 128/65 Pulse Oximetry Oxygen Delivery Oxygen Flow Rate 12/12/22 08:00 12/12/22 08:00 12/12/22 10:00 Temperature 97.8 F Pulse Rate 94 93 93 Respiratory Rate 22 H 24 H Blood Pressure 123/62 Pulse Oximetry 93 91 Oxygen Delivery Simple Face Mask Oxygen Flow Rate 8 12/12/22 10:20 12/12/22
[2022-12-12] MEDS: SODIUM BICARBONATE 8.4% 150 MEQ in DEXTROSE 5% 1,000 ML 950 ML 175 MEQ IV CONT ×2 (12:07→18:43)
--- NOTE | 2022-12-12 12:26 | PM.CNNEP ---
Assessment and Plan Assessment and plan (1) MACIEJ (acute kidney injury): Code(s): N17.9 - Acute kidney failure, unspecified Status: Acute Assessment and Plan: normal renal function at baseline as of a year ago (1.0 - 1.2mg/dl) suspect ATN due to: hemodynamic instability infection/sepsis prerenal factors (?) worsened by KUNAL-I use RUBBER BOOTS AND SHOES REPAIRER mild rhabomyolysis follow-up on urine studies check renal ultrasound IVFs as tolerated remains at risk for PARTS REMOVER/dialysis -- given his hemodynamic instability, he may need CRRT (which would require transfer to another facility) follow trend of repeat labs and UOP (2) Septic shock: Code(s): A41.9 - Sepsis, unspecified organism; R65.21 - Severe sepsis with septic shock Status: Acute Assessment and Plan: source felt to be #3 vasopressor support to maintain BP/MAP broad spectrum antibiotics follow culture data (3) Necrotizing fasciitis: Code(s): M72.6 - Necrotizing fasciitis Status: Acute Assessment and Plan: s/p I & D earlier today Plastic Surgery following local wound care (4) Rhabdomyolysis: Code(s): M62.82 - Rhabdomyolysis Status: Acute Assessment and Plan: follow trend of CPK bicarb fluids Long and extensive discussion (greater than 25 min) with the patient regarding his acute kidney injury and my concern that he may require renal replacement therapy/dialysis if his kidney function continues to deteriorate or if he runs into problems with volume overload, hyperkalemia, refractory metabolic acidosis...etc. He appeared to voice understanding. Discussed case with Dr. Queen earlier today. Will continue to follow. History of Present Illness Reason for Consult Consult date: 12/12/22 Reason for consult: acute renal failure Chief Complaint Chief complaint: Dehydration History of Present Illness Narrative: The patient is a 77-year-old male with a past medical history as outlined below who presented to [facility] Emergency room with left hand swelling. Apparent the patient was initially seen in the emergency room about 3-4 days ago after he sustained a fall in a parking lot. He landed on his left hand and left side of his face and evaluation in the ER at this time demonstrated a laceration above his left eyebrow that was repaired with sutures as well as a laceration to his left hand that was also repaired with sutures. He did have a mild laceration on the bridge of his nose where Steri-Strips were applied. He was subsequently discharged home on oral antibiotic therapy. He apparently returned to the ER after having diarrhea as well as significant swelling /edema and blistering on his left hand. Subsequent workup and evaluation in the ER demonstrated the patient to be mildly hypotensive but he responded to IV fluid boluses. Routine blood test demonstrated acute kidney injury in association with rhabdomyolysis and lactic acidosis. His condition deteriorated in the emergency room with worsening hypotension that required central line placement and initiation on vasopressor therapy. Re-examination of the patient noted that his left hand wounds were significantly worse and concerning for possible early necrotizing fasciitis. Surgery was consulted and he was emergently taken to the OR for incision and drainage of his left hand/wrist. Postoperatively he was taken to the ICU for further evaluation and management.His vasopressor requirements have increased with high-dose Levophed and subsequent addition of vasopressin earlier this morning. Renal consultation was requested due to his acute kidney injury/acute renal failure. Previous labs available in the [facility] system show that his baseline creatinine normally runs around 1.0 - 1 2 mg/dL. His creatinine by labs this morning is up to 3.2 mg/dL with no critical electrolyte abnormalities but He has no associated metabolic acidosis.
[2022-12-12 12:32] LABS: Lactic Acid Reflex 3.3 mmol/L (0.7-2.0)
[2022-12-12 12:40] LABS: Creatine Kinase 2623 U/L (55-170)
[2022-12-12 13:27] LABS: CRP 32.4 mg/dL (<1.0)
[2022-12-12] MEDS: HEPARIN SODIUM 5,000 UNITS/ML VIAL 5000 UNITS SUB-Q ×2 (13:32→21:10)
[2022-12-12] MEDS: CLINDAMYCIN 900 MG/D5W 50 ML 900 MG/50 ML PIGGYBACK 50 MG IVPB ×2 (13:32→21:09)
[2022-12-12] MEDS: CENTRAL LINE FLUSH 10 ML IV PUSH ×3 (13:33→21:10)
[2022-12-12] MEDS: HYDROmorphone HCL INJ (*CRX) 1 MG/ML SYR 0.5 MG IV PUSH (13:42)
[2022-12-12] MEDS: NOREPINEPHRINE 8 MG/D5W 250 ML 8 MG/250 ML BAG 33.75 MG IV CONT (15:23)
[2022-12-12 21:01] LABS: Base Excess ABG -5.6 mEq/l (+/-2.0); Carboxyhemoglobin 0.3 % THb (0-2.0); Fractional Inspired Oxygen 100 %; HCO3 ABG 18.7 mEq/l (22.0-26.0); Methemoglobin ABG 0.5 %THb (0-1.5); Oxygen Content ABG 17.1 %vol (16.0-22.0); Oxygen Saturation ABG 97.6 % (95.0-100.0); Oxyhemoglobin 96.5 % THb (90.0-100.0); PCO2 ABG 33.1 mmHg (35.0-45.0); PO2 ABG 102.9 mmHg (80.0-100.0); PO2 FiO2 Ratio Arterial Blood 1.03 %; Reduced Hemoglobin 2.7 %THb (0-5.0); Total Hemoglobin 12.5 g/dL (12.0-18.0); pH ABG 7.371 (7.350-7.450)
[2022-12-12 21:03] LABS: Site Drawn ARTLINE
[2022-12-12 21:04] LABS: Device NON-REBREATHER MASK
[2022-12-12] MEDS: NOREPINEPHRINE 8 MG/D5W 250 ML 8 MG/250 ML BAG 26.25 MG IV CONT (22:55)
[2022-12-13 01:12] VITALS: BP 111/55; PULSE 75; PULSE 76; RESP 18; TEMP 36.7; O2SAT 95
[2022-12-13] MEDS: SODIUM BICARBONATE 8.4% 150 MEQ in DEXTROSE 5% 1,000 ML 950 ML 175 MEQ IV CONT (01:20)
[2022-12-13 01:53] LABS: Hematocrit 34.1 % (42.0-52.0); Hemoglobin 11.6 g/dL (14.0-18.0); Immature Platelet Fraction Pct 4.8 % (0.9-11.2); Mean Corpuscular Hemoglobin 32.1 pg (26-34); Mean Corpuscular Volume 94.5 fl (80-100); Mean Platelet Volume 10.7 fl (7.4-10.4); Platelet Count Result 138 k/mm3 (150-375); Red Blood Count 3.61 M/mm3 (4.6-6.20); Red Cell Distribution Width 14.6 % (11.5-14.5)
[2022-12-13 02:00] VITALS: BP 114/54; PULSE 73; PULSE 74; RESP 21; TEMP 36.8; O2SAT 95
--- NOTE | 2022-12-13 02:05 | PC.NURSE ---
report given to [place] ELECTRONICS PROCESSOR Alejandra. Pt going to room 4462
[2022-12-13 02:06] LABS: Lactic Acid Reflex 3.8 mmol/L (0.7-2.0)
[2022-12-13 02:15] LABS: Creatine Kinase 2981 U/L (55-170)
[2022-12-13 02:26] VITALS: BP 115/54; PULSE 72
[2022-12-13 02:38] LABS: Alanine Aminotransferase 52 U/L (6-50); Albumin Level 2.7 g/dL (3.5-5.1); Alkaline Phosphatase 44 U/L (38-126); Anion Gap 11 mmol/L (8-16); Aspartate Amino Transferase 137 U/L (17-59); Bilirubin,Total 0.8 mg/dL (0.2-1.3); Blood Urea Nitrogen 64 mg/dL (9-20); Calcium 6.2 mg/dL (8.4-10.2); Carbon Dioxide 22 mmol/L (22-30); Chloride 95 mmol/L (98-107); Estimated CRCL calculation 14 ml/min; Estimated Glomerular Filt Rate 16; Glucose 126 mg/dL (65-110); Potassium 4.1 mmol/L (3.4-5.0); Sodium 128 mmol/L (137-145)
[2022-12-13 02:44] LABS: Band Neutrophils Percent 60 % (0-6); Blastocytes 1 %; Eosinophils Absolute Manual 0.19 K/mm3 (0.02-0.5); Eosinophils Percent Manual 1 % (0-4); Lymphocytes Absolute Manual 0.19 K/mm3 (1.1-4.5); Macrocytosis 1+ (NORMAL); Metamyelocytes Percent 15 %; Monocytes Absolute Manual 0.19 K/mm3 (0.1-0.90); Monocytes Percent Manual 1 % (3-9); Myelocytes Percent 2 %; Neutrophils Absolute Manual 15.01 K/mm3 (1.3-6.7); Neutrophils Percent Manual 19 % (46-73); Platelet Estimate Adequate (Adequate); Poikilocytosis 2+ (NORMAL); Total Cells Counted 100
[2022-12-13 02:45] LABS: Schistocytes Rare (NORMAL)
[2022-12-13 02:46] LABS: Acanthocytes 1+ (NORMAL); Burr Cells 2+ (NORMAL); Crenated RBC 2+ (NORMAL)
[2022-12-13 03:10] VITALS: BP 107/56; PULSE 75; RESP 18; TEMP 36.8; O2SAT 95
--- NOTE | 2022-12-13 03:10 | PC.NURSE ---
pt transferred to [facility] via [facility]. Pt alert verb no complaint of pain in left hand, but numbness. left pinky finger continues to be purple warm. Maintained on levophed vaso pressin and sodium bicarb drip via right subclavian central line. Right radial art line on pressure bag not transduced. Oxygen 10 liters via non rebreather.
[2022-12-13 03:15] LABS: Vancomycin Random 8.8 ug/mL (10-20)
[2022-12-13 04:49] LABS: Reflex Lactic Acid Yes or No Add Lactic
--- NOTE | 2023-01-23 07:29 | PM.TDS ---
Transfer Discharge Sum: Prov Provider Date of admission: 12/12/22 00:25 Primary care physician: Magno Marley MD Admitting clinician: Elsa Gruber MD Consults: 12/12/22 Consult to Physician Routine Comment: Consulting Provider: Marimar Queen Reason for consultation: sepsis necrotising faciatis Has provider been notified: Yes Consult to Physician Routine Comment: Consulting Provider: Cody Caldwell Reason for consultation: MACIEJ Has provider been notified: Yes DS: Admitting Diagnosis Discharge Date 12/13/22 Admitting Diagnosis Cellulitis and necrotizing fasciitis DS: Discharge Diagnosis Discharge Diagnosis (1) Septic shock: Code(s): A41.9 - Sepsis, unspecified organism; R65.21 - Severe sepsis with septic shock Status: Acute Assessment and Plan: Improving (2) Necrotizing fasciitis: Code(s): M72.6 - Necrotizing fasciitis Status: Acute Assessment and Plan: Status post surgical debridement. Continue IV antibiotics. Continue supportive care in the ICU. (3) MACIEJ (acute kidney injury): Code(s): N17.9 - Acute kidney failure, unspecified Status: Acute Assessment and Plan: Monitor kidney function electrolytes. Transfer Discharge Sum: Med Medications Active and Home Medications: Home Medications aspirin 81 mg tablet,delayed release (Adult Aspirin Regimen) 81 mg PO DAILY 12/10/19 [History Confirmed 12/12/22] cholecalciferol (vitamin D3) 25 mcg (1,000 unit) tablet 1,000 unit PO DAILY 12/10/19 [History Confirmed 12/12/22] atorvastatin 80 mg tablet 80 mg PO DAILY #90 tabs 08/02/22 [Rx Confirmed 12/12/22] lisinopril 30 mg tablet 30 mg PO DAILY 12/12/22 [History Confirmed 12/12/22] pantoprazole 40 mg tablet,delayed release 40 mg PO DAILY 12/12/22 [History Confirmed 12/12/22] sertraline 25 mg tablet 25 mg PO DAILY 12/12/22 [History Confirmed 12/12/22] levothyroxine 75 mcg tablet 75 mcg PO DAILY #90 tabs 01/20/23 [Rx] Transfer Discharge Sum: Hosp Hospital Course Hospital course: Brian Noriega is a 77 year old male was admitted for necrotizing fasciitis. Spent time in the ICU and was ultimately transferred to outside facility for further management. Time Spent with Patient Time attestation: Total time spent providing and/or coordinating transfer services: Exam Narrative: Gen: AAOx4, NAD, on simple face mask Skin: sutures noted above L eyebrow, steristrips on bridge of nose Neuro: follows all commands and moves all extremities equally CV: RRR Pul: CTAB Abd:soft, nontender, normoactive bowel sounds Ext: L hand and wrist with dressing- intact sensation and motor function to L fingers; delayed capillary refill (>3 seconds)
== END 2022-12-13 03:10 | disposition short-term general hospital (02) | DRG 871 ==
LOC: ANHED 12-12 04:04 → ANHICU 12-12 09:05
PROVIDERS: Internal Medicine Critical Care Medicine; Plastic Surgery; Admitting Provider Internal Medicine; Emergency Provider Emergency Medicine; PCP Internal Medicine; Visit Provider Internal Medicine
PROC: 0J9K0ZX Drainage of Left Hand Subcutaneous Tissue and Fascia, Open Approach, Diagnostic (ICD-10-PCS; principal; 2022-12-12 04:00)
DX: A41.9 Sepsis, unspecified organism (principal); M72.6 Necrotizing fasciitis; R65.21 Severe sepsis with septic shock; N17.0 Acute kidney failure with tubular necrosis; M62.82 Rhabdomyolysis; Z20.822 Contact with and (suspected) exposure to COVID-19; I10 Essential (primary) hypertension; E03.9 Hypothyroidism, unspecified; K21.9 Gastro-esophageal reflux disease without esophagitis; E78.2 Mixed hyperlipidemia; G62.9 Polyneuropathy, unspecified; Z79.82 Long term (current) use of aspirin
CPT/HCPCS: 12001; 12013; 36415; 36556; 36600; 70450; 71045; 73130; 80053; 80202; 81001; 82375; 82550; 82570; 82805; 82948; 83050; 83605; 83690; 84300; 84484; 85025; 85055; 86140; 87040; 87070; 87075; 87081; 87086; 87147; 87205; 87637; 93005; 96360; 96361; 99199; 99284; 99285; 99291; A9270; C1751; J0743; J1170; J1644; J2250; J2370; J2543; J2590; J2704; J3010; J3370; J7030; J7070; J7120

== ENCOUNTER 2025-06-09 13:41 | Outpatient (CLI) | payer MEDICARE, SELFPAY ==
--- NOTE | ~2025-06-09 | XR_ITS ---
EXAM/ PROCEDURE: XR hip LT 2V w AP pelvis, XR femur LT min 2V - 06/09/2025 13:50 CDT HISTORY: 80 years old Male with M79.605 - Pain in left leg COMPARISON: None available TECHNIQUE: Three view(s) each FINDINGS/ IMPRESSION: There are no fractures or dislocations.Joint space narrowing, subchondral sclerosis, subchondral cyst formation and osteophyte formation, compatible with moderate osteoarthritis. Status post ORIF of the left proximal femoral healing fracture. Status post left knee arthroplasty. Intact hardware and no loosening. Reviewed, dictated and finalized at location N.
--- NOTE | ~2025-06-09 | XR_ITS ---
EXAMINATION: XR lumbar spine 2-3V DATE: 06/09/2025 14:40 INDICATION: Pain in left leg TECHNIQUE: 3 images of the lumbar spine were obtained. COMPARISON: None. FINDINGS: Bones appear osteopenic. Please note that osteopenia limits sensitivity for detecting fractures by radiographs. MRI or bone scan can be obtained if clinically indicated. Moderate levoconvex curvature of the lumbar spine. No compression fracture in the lumbar spine. Grade 1 retrolisthesis of L2 on L3. Severe intervertebral disc space narrowing throughout the lumbar spine. Severe degenerative change throughout the lumbar facet joints. Calcifications are noted in the visualized aorta. IMPRESSION: 1. No compression fracture in the lumbar spine. 2. Severe degenerative change throughout the lumbar spine. If symptoms persist or worsen, consider an MRI of the lumbar spine for further assessment. Reviewed, dictated and finalized at location Q.
== END 2025-06-09 13:42 | disposition home or self-care (01) ==
LOC: MICIMG 13:42
PROVIDERS: PCP Nurse Practitioner Family; Visit Provider Nurse Practitioner Family
DX: M79.605 Pain in left leg (principal); M54.10 Radiculopathy, site unspecified; M51.369 Other intervertebral disc degeneration, lumbar region without mention of lumbar back pain or lower extremity pain
CPT/HCPCS: 72100; 73502; 73552

== ENCOUNTER 2025-08-01 10:19 | Emergency (ER) | payer MEDICARE, SELFPAY ==
[2025-08-01 10:27] VITALS: BP 144/88; PULSE 91; RESP 16; TEMP 36.6; O2SAT 99
--- NOTE | 2025-08-01 10:53 | ED.EAR ---
HPI - Ear Problem General Chief complaint: Ear Stated complaint: Clogged Ears Time Seen by Provider: 08/01/25 10:40 Source: patient and RN notes reviewed Mode of arrival: ambulatory Limitations: no limitations History of Present Illness HPI Narrative: 80-year-old male presents to the [facility] complaining of left ear fullness for proximally 2-3 days. Patient has a history of impacted earwax. Patient has been using Debrox without relief. Patient denies any other upper respiratory symptoms, fevers, body aches, chills, nausea vomiting, diarrhea, dizziness, lightheadedness, or any other symptoms. Related Data Home Medications ?Medication ?Instructions ?Recorded ?Confirmed ?Last Taken ?Type aspirin 81 mg tablet,delayed 81 mg PO DAILY 12/10/19 06/30/25 Unknown History release (Adult Aspirin Regimen) cholecalciferol (vitamin D3) 25 1,000 unit PO DAILY 12/10/19 06/30/25 Unknown History mcg (1,000 unit) tablet multivitamin (One Daily 1 tablet PO DAILY 03/12/23 06/30/25 Unknown History Multivitamin tablet) Allergies Allergy/AdvReac Type Severity Reaction Status Date / Time No Known Allergies Allergy Verified 08/01/25 10:37 Review of Systems Review of Systems: CONSTITUTIONAL: Denies fever, chills, or sweats. EYES: Denies visual changes, redness, or discharge. ENT: Denies rhinorrhea, congestion, sore throat, or otalgia. Positive left ear fullness. CARDIOVASCULAR: Denies chest pain, palpitations, dizziness, lightheadedness, or edema. RESPIRATORY: Denies cough or dyspnea. GASTROINTESTINAL: Denies abdominal pain, nausea, vomiting, or diarrhea. GENITOURINARY: Denies dysuria or hematuria. SKIN: Denies rash or itching. MUSCULOSKELETAL: Denies back pain, joint pain, or myalgia. NEUROLOGIC: Denies headache, numbness, or weakness. PSYCHIATRIC: Denies anxiety or depression. All other systems reviewed are negative, except as documented in HPI. [facility] Past Medical History Medical History Necrotizing fasciitis Hypovolemic shock Acute hypotension HTN (hypertension) Poor balance Screening for prostate cancer Screening for colon cancer Acquired hypothyroidism Gastroesophageal reflux disease Mixed hyperlipidemia Neuropathy of both feet Family History Family History Mother Patient's mother is in good health Sibling Patient's sister is in good health Father Cerebrovascular accident Patient's father is Other Hypertension Social History Social History Smoking packs per day: 1 Smoking cigarettes per day: 20.0 Years smoked: 12 Smoking pack-years: 12.00 Smoking status: Former smoker Tobacco type: cigarettes Second hand tobacco smoke exposure: No Smoking end date: 01/17/71 Alcohol intake: current Drinks per week: 2 Substance use: never Substance use type: does not use Lack of Transportation: No Lack of Food: Never True Current Housing: I Do Not Have Housing Concerned About Future Housing: No Difficulty Paying Gas/Electric Bills: No Difficulty Paying for Meds: No Currently Unemployed: No Education: High School Diploma/GED Difficulty w/ Childcare or Family Care: No Spiritual care concerns: No Agree to blood products: Yes Comments At the time of my signature, I reviewed and agree with the nursing past medical, surgical, social, and family history. There is no relevant family history pertinent to the patient complaint. Exam Narrative: GENERAL: This is a well-nourished, well-developed adult, in no apparent distress. They are non ill-appearing, nontoxic appearing. HEAD: normocephalic, atraumatic. EYES: Sclera clear/white. Conjunctiva normal. Vision is grossly intact. Extraocular movements intact EARS: External ears normal, right auditory canals with cerumen, no impaction, no redness or swelling, without drainage, left auditory canal with impacted cerumen. Unable to visualize left TM. Right TM normal without perforation. Hearing grossly intact. NOSE: External nose normal THROAT: Mucous membranes moist, NECK: Neck supple, CARDIOVASCULAR: Regular rate and rhythm RESPIRATORY: Respiratory rate normal, respiratory effort nonlabored, no respiratory distress GASTROINTESTINAL: Abdomen soft, non-tender, nondistended. Bowel sounds are active. No hepato-splenomegaly, or palpable masses. No guarding.NEURO: awake, alert, and oriented to person, place and time. There were no obvious focal neurologic abnormalities. EXTREMITIES: No joint tenderness, effusion, or edema noted. Course Course Emergency Course: Portions of this record may have been created with voice recognition software Level of Care: Express Care Visit Vital Signs Vital signs: Vital Signs Temperature 98 F 08/01/25 10: Pulse Rate 91 08/01/25 10:27 Respiratory Rate 16 08/01/25 10:27 Blood Pressure 144/88 H 08/01/25 10:27 Pulse Oximetry 99 08/01/25 10:27 Temperature 98 F 08/01/25 10: Pulse Rate 91 08/01/25 10:27 Respiratory Rate 16 08/01/25 10:27 Blood Pressure 144/88 H 08/01/25 10:27 Pulse Oximetry 99 08/01/25 10:27 Reviewed Procedures Ear Wax Removal Left Ear: Ear Wax Removal Date: 08/01/25 Ear Wax Removal Time: 10:45 Cerumenolytic Used: other (small amount hydrogen peroxide) Results: Re-examined: cerumen removed completely TM Examination: TM(s) intact, normal appearance Ear Canal Exam: atraumatic Patient Tolerated Procedure: well Complications: no problems Technique: ear canal irrigated and ear canal curetted Medical Decision Making MDM Narrative Medical decision making narrative: Successful removal left earwax with irrigation and curette. Reports significant improvement of symptoms. No evidence of infection, left TM intact. Discussed physical exam findings. Advised supportive measures and signs/symptoms to go to the ER. Pt is appropriate for outpt treatment and f/u. Differential Diagnosis Differential Diagnosis: Otitis media, otitis externa, impacted cerumen Vital Signs Vital Signs: Vital Signs Temperature 98 F 08/01/25 10:27 Pulse Rate 91 08/01/25 10:27 Respiratory Rate 16 08/01/25 10:27 Blood Pressure 144/88 H 08/01/25 10:27 Pulse Oximetry 99 08/01/25 10:27 Temperature 98 F 08/01/25 10:27 Pulse Rate 91 08/01/25 10:27 Respiratory Rate 16 08/01/25 10:27 Blood Pressure 144/88 H 08/01/25 10:27 Pulse Oximetry 99 08/01/25 10:27 Critical Care Time Critical Care Time Critical Care Time: No Discharge Plan Discharge Clinical Impression: Impacted cerumen of left ear Patient Disposition: Home Condition: Stable Instructions: Earache (ED) Additional Instructions: Use Debrox as needed for earwax. Follow-up with your PCP in 3-5 days. Return ER for any serious concerns. Patient Language: Belgian Prescriptions: No Action aspirin [Adult Aspirin Regimen] 81 mg tablet,delayed release (DR/EC) 81 mg PO DAILY cholecalciferol (vitamin D3) 25 mcg (1,000 unit) tablet 1,000 unit PO DAILY multivitamin [One Daily Multivitamin] Tablet 1 tablet PO DAILY methocarbamol 500 mg tablet 500 mg PO QHS PRN (Reason: muscle pain) Qty: 7 0RF methylprednisolone [Medrol (Lai)] 4 mg tablets,dose pack See Rx Instructions PO PER PKG DIR Qty: 21 0RF Rx Instructions: PO PER PKG DIR pantoprazole 40 mg tablet,delayed release (DR/EC) See Rx Instructions .ROUTE .COMPLEX Qty: 90 1RF Dose Instruction: TAKE 1 TABLET BY MOUTH DAILY Rx Instructions: TAKE 1 TABLET BY MOUTH DAILY lisinopril 30 mg tablet See Rx Instructions .ROUTE .COMPLEX Qty: 90 1RF Dose Instruction: TAKE 1 TABLET BY MOUTH EVERY DAY Rx Instructions: TAKE 1 TABLET BY MOUTH EVERY DAY levothyroxine 75 mcg tablet See Rx Instructions .ROUTE .COMPLEX Qty: 90 1RF Dose Instruction: TAKE 1 TABLET BY MOUTH EVERY DAY Rx Instructions: TAKE 1 TABLET BY MOUTH EVERY DAY sertraline 25 mg tablet See Rx Instructions .ROUTE .COMPLEX Qty: 90 1RF Dose Instruction: TAKE 1 TABLET BY MOUTH EVERY DAY Rx Instructions: TAKE 1 TABLET BY MOUTH EVERY DAY atorvastatin 80 mg tablet See Rx Instructions .ROUTE .COMPLEX Qty: 90 1RF Dose Instruction: TAKE 1 TABLET BY MOUTH DAILY (DOSE INCREASE) Rx Instructions: TAKE 1 TABLET BY MOUTH DAILY (DOSE INCREASE) meloxicam 15 mg tablet 15 mg PO DAILY Qty: 30 1RF Follow-up/Referrals: Mi Cortes APRN [Primary Care Provider, Internal Medicine] Time of Disposition: 10:53
== END 2025-08-01 11:12 | disposition home or self-care (01) ==
PROVIDERS: PCP Nurse Practitioner Family
DX: H61.22 Impacted cerumen, left ear (principal); I10 Essential (primary) hypertension; E03.9 Hypothyroidism, unspecified; K21.9 Gastro-esophageal reflux disease without esophagitis; E78.2 Mixed hyperlipidemia; G62.9 Polyneuropathy, unspecified; Z87.891 Personal history of nicotine dependence; Z79.82 Long term (current) use of aspirin
CPT/HCPCS: 69210; 99212; G0463

== ENCOUNTER 2025-10-04 10:37 | Outpatient (CLI) | payer MEDICARE, SELFPAY ==
--- OUTSIDE RECORDS SUMMARY | 2025-10-04 11:16 | XMS_ITS | Encounter Summary ---
Author Organization [facility] Facility Care Team Providers Care Air Quality Consultant Name Role Phone Shad Dsouza Primary Care Provider [phone] Nehemiah Mcknight MD Primary Care Provider [phone] Magno Marley MD Primary Care Provider [phone] Nehemiah Mcknight MD Unavailable [phone] Davide Smith MD Primary Care Provider [phone] Encounter Details Date Type Department Care Team (Latest Contact Info) Description 03/10/2018 Orders Only [facility] CLINCONV ProviderNiru MD [address] [place] [id number] Social History Tobacco Use Types Packs/Day Years Used Date Smoking Tobacco: Never Assessed Sex and Gender Information Value Date Recorded Sex Assigned at Not on file Legal Sex Male 6:30 AM WOODS BOSS Gender Identity Male 10/09/2020 11:48 AM WOODS BOSS Sexual Orientation Not on file documented as of this encounter Plan of Treatment Not on file documented as of this encounter Procedures Procedure Name Priority Date/Time Associated Diagnosis Comments PROCEDURE - RESULT 03/10/2018 12 :00 AM CDT documented in this encounter Results * PROCEDURE - RESULT (03/10/2018 12:00 AM CDT) Narrative 03/10/2018 12:00 AM CDT Ordered by an unspecified provider. Historical Provider MD Final Res ult documented in this encounter Visit Diagnoses Not on filedocumented in this encounter Care Teams Air Quality Consultant Relationship Specialty Start Date End Date Shad Dsouza DO PCP - General Internal Medicine 08/04/19 09/26/19 Nehemiah Mcknight MD [address] [place] [facility] [place] [address] PCP - General 09/27/19 10/07/19 Magno Marley MD [address] [place] [address] PCP - General Internal Medicine 11/21/22 05/25/24 Davide Smith MD [address] [place] [facility] [place] [address] PCP - General Family Practice 05/26/24 Nehemiah Mcknight MD [address] [place] [place] [facility] [place] [address] Surgeon Vascular Surgery 12/13/22 documented as of this encounter
--- OUTSIDE RECORDS SUMMARY | 2025-10-04 11:16 | XMS_ITS | Encounter Summary ---
Author Organization [facility] Address [address] [place] [address] Phone Care Team Providers Care Forming Roll Operator Heavy Duty Name Role Phone Magno Marley MD Primary Care Provider [phone] Nehemiah Mcknight MD Unavailable [phone] Davide Smith MD Primary Care Provider [phone] Encounter Details Date Type Department Care Team (Late st Contact Info) Description 06/05/2023 Documentation [facility] Medicine Surgery [address] [facility] [facility] [address] 6th [place] [address] [place] [address] Alma Borges MD PhD [address] [place] [address] Social History Tobacco Use Types Packs/Day Years Used Date Smoking Tobacco: Former Cigarettes Q uit: 1973 Smokeless Tobacco: Never OASIS D0700: Social Isolation Answer Da te Recorded Frequency of experiencing loneliness or isolatio n Never 01/09/2023 OASIS A1250: Transportation Answer Date Recorded Lack of Transportation (Medical) No 01/09/2023 Lack of Transportation (Non-Medical) No 01/09/2023 Patient Unable or Declines to Respond No 01/09/2023 OASIS B1300: Health Literacy Answer Marcus e Recorded Frequency of needing help to read materials from doctor or pharmacy Never 01/09/2023 AUDIT-C Answer Date Recorded Q1: How often do you have a drink containing alcohol? Never 01/30/2023 Q2: How many drinks containi ng alcohol do you have on a typical day when you are drinking? Patient does not drink Q3: How often do you have si x or more drinks on one occasion? Never 01/30/2023 Personal Safety Answer Date Recorded Have you ever been in or are you currently in a harmful physical or emotional relationship or is someone making you feel afraid or unsafe? Denies 01/30/2023 Sex and Gender Information Value Date Recorded Sex Assigned at Not on file Legal Sex Male 6:30 AM IUSS ANALYST Gender Identity Male 10/09/2020 11:48 AM IUSS ANALYST Sexual Orientation Not on file documented as of this encounter Plan of Treatment Not on file documented as of this encounter Visit Diagnoses Not on filedocumented in this encounter Care Teams Forming Roll Operator Heavy Duty Relationship Specialty Start Date End Date Magno Marley MD PCP - General Internal Medicine 11/21/22 05/25/24 Davide Smith MD [address] [facility] [place] [address] PCP - General Family Practice 05/26/24 Nehemiah Mcknight MD [address] [place] [address] Surgeon Vascular Surgery 12/13/22 documented as of this encounter
--- OUTSIDE RECORDS SUMMARY | 2025-10-04 11:16 | XMS_ITS | Encounter Summary ---
Author Organization [facility] Facility Care Team Providers Care Post Partum Nurse Name Role Phone Shad Dsouza Primary Care Provider [phone] Nehemiah Mcknight MD Primary Care Provider [phone] Magno Marley MD Primary Care Provider [phone] Nehemiah Mcknight MD Unavailable [phone] Davide Smith MD Primary Care Provider [phone] Encounter Details Date Type Department Care Team (Latest Contact Info) Description 11/12/2017 Orders Only [facility] CLINCONV ProviderNiru MD [address] [place] [address] Social History Tobacco Use Types Packs/Day Years Used Date Smoking Tobacco: Never Assessed Sex and Gender Information Value Date Recorded Sex Assigned at Not on file Legal Sex Male 6:30 AM DISABILITY HEARING OFFICER Gender Identity Male 10/09/2020 11:48 AM DISABILITY HEARING OFFICER Sexual Orientation Not on file documented as of this encounter Plan of Treatment Not on file documented as of this encounter Procedures Procedure Name Priority Date/Time Associated Diagnosis Comments PROCEDURE - RESULT 11/12/2017 12 :00 AM DISABILITY HEARING OFFICER documented in this encounter Results * PROCEDURE - RESULT (11/12/2017 12:00 AM DISABILITY HEARING OFFICER) Narrative 11/12/2017 12:00 AM DISABILITY HEARING OFFICER Ordered by an unspecified provider. us Historical Provider Final Res ult documented in this encounter Visit Diagnoses Not on filedocumented in this encounter Care Teams Post Partum Nurse Relationship Specialty Start Date End Date Shad Dsouza DO PCP - General Internal Medicine 08/04/19 09/26/19 Nehemiah Mcknight MD [address] [place] [address] [address] PCP - General 09/27/19 10/07/19 Magno Marley MD [address] [place] [address] PCP - General Internal Medicine 11/21/22 05/25/24 Davide Smith MD [address] [place] [address] [address] PCP - General Family Practice 05/26/24 Nehemiah Mcknight MD [address] [place] [address] Surgeon Vascular Surgery 12/13/22 documented as of this encounter
--- OUTSIDE RECORDS SUMMARY | 2025-10-04 11:16 | XMS_ITS | Clinical Summary ---
Author Organization [facility] Address [address] [place] [address] Care Team Providers Care Clothing Examiner Name Role Phone Unavailable Primary Care Provider Unavailabl e Social History Tobacco Use Types Packs/Day Years Used Date Smoking Tobacco: Never Assessed Sex and Gender Information Value Date Recorded Sex Assigned at Not on file Legal Sex Male 7:56 PM CDT Gender Identity Not on file Sexual Orientation Not on file Plan of Treatment Health Maintenance Due Date Last Done Comments DTaP, Tdap and Td Vaccines ( 1 - Tdap) 02/28/1964 Zoster Vaccines (1 of 2) 1995 Annual Medicare Wellness Visit 2010 RSV Immunization or 60+ Years (1 - 1-dose 75+ series) 02/28/2020 COVID-19 Vaccine ( - 2024-2 6 season) 2025 Influenza Adult (#1) 2025 08/02/2019, 07/22/2017 Pneumococcal Vaccine: 50+ Years Completed 10/26/2018, 08/21/2017 Hepatitis A Vaccines Aged Out No long er eligible based on patient's age to complete this topic Meningococcal B Vaccine Aged Out No l onger eligible based on patient's age to complete this topic Meningococcal Vaccine Aged Out No [place] eligible based on patient's age to complete this topic RSV Immunizations Under 20 Months Aged Out No longer eligible b ased on patient's age to complete this topic Insurance ESSENCE
--- OUTSIDE RECORDS SUMMARY | 2025-10-04 11:16 | XMS_ITS | Clinical Summary ---
Author Organization [facility] [place] at the [facility] Address [address] [place] [address] Care Team Providers Care Leather Staker Name Role Phone Nehemiah Mcknight MD Unavailable [phone] Davide Smith MD Primary Care Provider [phone] Allergies No known active allergies Medications famotidine (PEPCID) 20 mg tabletIndicatio ns:Heartburn,He artburn Prevention Take 1 tablet (20 mg total) by mouth every morning 9 Active levothyroxine (SYNTHROID) 75 mcg tabletIndicatio ns:hypothyroidi sm Take 1 tablet (75 mcg total) by mouth director of early childhood before breakfast 9 Active sertraline (ZOLOFT) 25 mg tabletIndicatio ns:depression Take 1 tablet (25 mg total) by mouth nightly 9 Active simvastatin (ZOCOR) 40 mg tabletIndicatio ns:hyperlipidem ia Take 1 tablet (40 mg total) by mouth nightly 9 Active aspirin 81 mg enteric coated tabletIndicatio ns:prevention of thrombosis Take 1 tablet (81 mg total) by mouth nightly Active iron, carbonyl (FEOSOL) 45 mg tabletIndicatio ns:Iron Deficiency Anemia Take 0.283 tablets (45 mg total) by mouth nightly Active cholecalciferol (VITAMIN D-3) 1,000 unit (25 mcg) tabletIndicatio ns:Vitamin D Deficiency Take 1 tablet (1,000 Units total) by mouth nightly Active pantoprazole DR (PROTONIX) 40 mg EC tabletIndicatio ns:Treatment of Non-Bleeding Gastric Disorder Take 1 tablet (40 mg total) by mouth every morning 9 Active atorvastatin (LIPITOR) 80 mg tabletIndicatio ns:hyperlipidem ia Take 1 tablet (80 mg total) by mouth nightly 3 Active acetaminophen 500 mg capsule Take 2 capsules (1,000 mg total) by mouth every 6 (six) hours as needed for pain 30 tablet 3 Active white petrolatum 42 % ointmentIndicat ions:skin irritation Apply topically daily 100 g 3 Active Additional Information Patient taking differently:topical Daily,LEFT ARM/HAND, Indications: skin irritation, Informant: Self, Reported on 01/24/2023 senna-docusate (PERICOLACE) 8.6-50 mg Take 1 tablet by mouth 2 (two) times a day Take if having constipation 30 tablet 3 Active Additional Information Patient taking differently:1 tablet oral 2 times daily, Take if having constipation,Indications: constipation, Informant: Self, Reported on 01/24/2023 LUTEIN-ZEAXANTH IN ORALIndications :eyes Take 1 capsule by mouth nightly Active diphenhydrAMINE (BENADRYL) 25 mg capsuleIndicati ons:sleep Take 2 tablet/capsule (50 mg total) by mouth nightly as needed for sleep or allergies Active lisinopriL (PRINIVIL,ZESTR [place]) 30 mg tabletIndicatio ns:hypertension Take 1 tablet (30 mg total) by mouth nightly 3 Active Active Problems Problem Noted Date Diagnosed Date Open wound of left hand without foreign body Overview (01/17/2023): Added automatically from request for surgery [id number] Necrotizing fasciitis of hand 12/13/2022 Assessment & Plan (06/05/2023 12:36 PM CDT): Impression: Patient underwent multiple surgical interventions for necrotizing fasciitis of the left hand. Patient has a dressing over the left hand and arm. He is currently being monitored by a his plastic surgeon at an outside facility. Plan: Continue recommendations as per plastic surgery. Assessment & Plan (12/21/2022 4:36 PM CDT): Brian Noriega is a 77 y.o. male with PMH HTN, HLD, acquired hypothyroidism, GERD/PUD c/b perforated ulcer, Right carotid artery stenosis who presents with worsening Left hand pain concerning for necrotizing fasciitis. Fell on the sidewalk resulting in a Left hand ulceration and head injury 12/09 - underwent Lac repair of the Left hand (and L eyebrow and bridge of nose) and discharged with PO cephalexin. Developed rapidly worsening left hand pain and swelling and presented to [facility] on 12/11 and taken to OR for Left hand I&D on 12/12. Intraoperatively noted significant purulence and spongy tissue near the base of the Left 5th digit with purulence along the flexor tendon sheath. Per microbiology at [facility], no cultures were taken. Developed worsening O2 and pressor requirement and transferred to [facility] 12/13. While here, afebrile, WBC 20, Cr 4.17 (baseline 1.2), CK 3320 . Left hand/wrist XR 12/13: limited exam of soft tissues due to overlying splint; probable mildly displaced 5th metacarpal base fracture. Went to the OR on 12/16/22 with Plastic Surgery for L. Hand I&D and wound vac placement- per OP note cloudy fluid was encountered in the deep tissues over the MCP joint. OR cultures positive for Strep. Pyogenes. PRS is planning on returning to OR today for repeat I&D. Blood cx 12/13/2022: NGF C-diff cx 12/13/2022: Negative Left hand wound cx 12/13/2022: abundant Streptococcus pyogenes (Group A Strep) Left hand OR cx 12/16/2022: Streptococcus pyogenes (Group A Strep) We would treat this as left hand GAS necrotizing fasciitis s/p multiple I&D. Recommendations: - Continue ceftriaxone 2g IV q 24hrs with plan to treat for a total of 14 days as soft tissue infection pending subsequent I&D's (start date 12/16/22, anticipated stop date 12/30/22) - Please monitor CMP and CBC at least weekly while on IV antibiotics - ID will sign off and monitor peripherally - please call with questions, specifically around discharge planning if patient still on antibiotics Infected superficial injury of left hand 023 Overview (12/19/2022): Added automatically from request for surgery [id number] Mixed hyperlipidemia 10/14/2019 Assessment & Plan (06/05/2023 12:35 PM CDT): Impression: Chronic and stable. Plan: Continue atorvastatin and simvastatin Assessment & Plan (10/14/2019 10:30 AM TARIFF COMPILING CLERK): The patient states that lipid in cholesterol levels remain controlled. Continue statin therapy per primary care physician. Occlusion of right carotid artery 08/18/2019 Assessment & Plan (06/05/2023 12:34 PM CDT): Impression: Patient has a known right internal carotid artery occlusion and moderate left internal carotid artery seen on carotid duplex. Patient remains asymptomatic. Plan: Continue ongoing risk factor modifications. -patient to follow-up in 1 year for re-evaluation with repeat carotid duplex. Assessment & Plan (11/22/2022 11:17 AM TARIFF COMPILING CLERK): History of chronic right-sided carotid occlusion with mild left-sided carotid occlusion. He continues to deny any neurological symptoms, slurred speech or amaurosis fugax. He remains compliant with medications. Plan: Continue risk factor modifications. Obtain a carotid duplex and call with the results. Carotid duplex obtained 11/21/2022 shows chronic occlusion of the right ICA. The left ICA shows mild stenosis at 16-49% with velocity of 50. However, there is a lot of shadowing and plaque noted. There is concern over the accuracy of the duplex with the amount of shadowing noted. Called the patient to discuss results and to set up a CTA of the carotids and come into the office to discuss results. Assessment & Plan (10/14/2019 10:29 AM TARIFF COMPILING CLERK): Patient has a chronic occlusion of the right internal carotid artery and remains asymptomatic. Continue risk factor modification, anti-platelet therapy in 1 year duplex surveillance Assessment & Plan (08/18/2019 4:03 PM TARIFF COMPILING CLERK): Patient with chronic occlusion of right carotid artery, fortunately asymptomatic history. Her most recent carotid duplex performed last year no significant stenosis on left side. Plan: Will proceed with bilateral carotid artery duplex, follow-up in 2 weeks for re-evaluation. Hypertension 08/18/2019 Assessment & Plan (06/05/2023 12:34 PM CDT): Impression: Chronic and stable. Plan: Continue lisinopril Assessment & Plan (10/14/2019 10:30 AM TARIFF COMPILING CLERK): Patient states blood pressure remains well controlled. Continue current antihypertensive regimen per primary care physician. Assessment & Plan (08/18/2019 4:03 PM TARIFF COMPILING CLERK): Stable blood pressure control use medication. Plan: Further management as per primary care provider. 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 - 10/05/1963 LAMINECTOMY 10/06/2004 - 10/05/2005 cervical FEMUR FRACTURE SURGERY 10/06/2004 - 10/05/2005 REPLACEMENT TOTAL KNEE 10/06/2005 - 10/05/2006 Left CARPAL TUNNEL RELEASE 2018 Right NASAL SEPTUM SURGERY 10/06/2007 - 10/05/2008 HERNIA REPAIR 10/06/2008 - 10/05/2009 OTHER SURGICAL HISTORY 10/06/2013 - 10/05/2014 Perforated ulcer REPLACEMENT TOTAL KNEE 10/06/2014 - 10/05/2015 Right CARPAL TUNNEL RELEASE 10/06/2017 - 10/05/2018 Left CARPAL TUNNEL RELEASE 12/13/2022 Guyons canal release and UPPER extremity I/D INCISION AND DRAINAGE OF WOUND 12/18/2022 Left LEFT UPPER ARM AND WOUND VAC PLACEMAENT INCISION AND DRAINAGE OF WOUND 12/23/2022 Left GRAFT SKIN SPLIT THICKNESS Medical History Medical History Date Comments Hypertension Family History Medical History Relation Name Comments Anesthesia problems Neg Hx Social History Tobacco Use Types Packs/Day Years [...] on file Legal Sex Male 6:30 AM TARIFF COMPILING CLERK Gender Identity Male 10/09/2020 11:48 AM TARIFF COMPILING CLERK Sexual Orientation Not on file Last Filed Vital Signs Vital Sign Reading Time Taken Comments Blood Pressure 139/84 06/05/2023 9:53 AM CDT Pulse 69 06/05/2023 9:53 AM CDT Temperature 36.9 C (98.4 F) 01/30/2023 12:56 PM CDT Respiratory Rate 15 01/30/2023 1:40 PM CDT Oxygen Saturation 94% 01/30/2023 1:40 PM CDT Inhaled Oxygen Concentration - - Weight 75.8 kg (167 lb) 06/05/2023 9:53 AM CDT Height 167.6 cm (5' 6) 06/05/2023 9:53 AM CDT Body Mass Index 26.95 06/05/2023 9:53 AM CDT Plan of Treatment Health Maintenance Due Date Last Done Comments Depression Screening 1945 DTaP/Tdap/Td Vaccine (1 - Tdap) 02/28/1956 Hepatitis B Screening 1963 Zoster Vaccine (1 of 2) 1995 Abdominal Aortic Aneurysm (AAA) Screen 2010 Well Visit 65+ 2010 Pneumococcal vaccine 65+ (2 of 2 - PCV) 10/26/2019 0 10/26/2018 Fall Risk Assessment 01/31/2024 01/30/2023 Influenza Vaccine (#1) 2025 08/02/2019, 2016 Insurance [facility] Member Subscriber Plan / Payer (Ef fective 2022-Present) Name:Brian Noriega Relation to Subscriber:Self Name:Brian Noriega Becky Payer ID:[id number] (NAIC) Type:MEDICARE RISK OTHER Address: [address] [facility] [place] [id number] [facility] [place] Advance Directives For more information, please contact: [phone] * Full Code (Latest Code Status on File) Date Activated Date Inactivated Comments 12/13/2022 4:39 AM 01/04/2023 4:14 PM Care Teams Leather Staker Relationship Specialty Start Date End Date Davide Smith MD [address] [place] [address] PCP - General Family Practice 05/26/24 Nehemiah Mcknight MD [address] [place] [address] Surgeon Vascular Surgery 12/13/22
[2025-10-04 11:19] LABS: Hematocrit 39.1 % (42.0-52.0); Hemoglobin 12.8 g/dL (14.0-18.0); Immature Granulocyte Percent A 0.3 % (0-0.5); Lymphocytes Absolute Auto 1.76 K/mm3 (0.9-3.2); Mean Corpuscular HGB Conc 32.7 g/dl (32-36); Mean Corpuscular Hemoglobin 32.2 pg (26-34); Mean Corpuscular Volume 98.5 fl (80-100); Nucleated Red Blood Cells Absolute Auto 0.000 K/mm3 (0.0-0.012); Nucleated Red Blood Cells Perc 0.0 % (0.0-0.2); Platelet Count Result 215 k/mm3 (150-375); Red Blood Count 3.97 M/mm3 (4.6-6.20); White Blood Count 7.0 K/mm3 (4.5-10.0)
[2025-10-04 11:44] LABS: CRP < 0.5 mg/dL (<1.0)
== END 2025-10-04 10:38 | disposition home or self-care (01) ==
PROVIDERS: PCP Nurse Practitioner Family; Visit Provider Orthopaedic Surgery
DX: M25.562 Pain in left knee (principal); G89.29 Other chronic pain; Z96.652 Presence of left artificial knee joint
CPT/HCPCS: 36415; 85025; 85652; 86140